=== PATIENT | female | born 1990 | race African-American/Black ===

== ENCOUNTER 2024-05-16 12:20 | Emergency (ER) | payer MEDICAID ==
[~2024-05-16] VITALS: Ht 167.6 cm; Wt 86.0 kg
[~2024-05-16 12:20] MED LIST: AMIT150T PO; ESCI20TA PO; FAMO40TA7 PO; ONDA-241 PO; OXYC1TAB5 PO; POTA-203 PO; PROM25SU57 RC; SUMA50TA16 PO
[2024-05-16 12:21] VITALS: O2SAT 100
[2024-05-16] MEDS ORDERED: MORPHINE SULFATE 4 MG/ML INJ (FOR IV/IM USE) IV STA (12:53)
[2024-05-16] MEDS ORDERED: ONDANSETRON HCL 4MG/2ML INJ IV STA (12:53)
[2024-05-16] MEDS ORDERED: FAMOTIDINE 20MG/2ML VIAL IV ONE (13:00)
[2024-05-16 13:48] LABS: BASOPHILS % 0.2 % (0.0-2.0); HEMATOCRIT. 36.9 % (36.0-48.0); HEMOGLOBIN. 12.1 g/dL (12.0-16.0); LYMPHOCYTES % 7.4 % (20.0-50.0); MEAN CORPUSCULAR HEMOGLOBIN 27.7 pg (28.0-32.0); MEAN CORPUSCULAR HGB CONC 32.9 g/dL (31.0-37.0); MEAN CORPUSCULAR VOLUME 84.1 fL (81.0-99.0); MEAN PLATELET VOLUME 7.6 fl (7.4-10.4); MONOCYTES % 5.4 % (2.0-8.0); PLATELET 386 x1000/uL (130-400); RED BLOOD CELL COUNT 4.39 mill/uL (4.2-5.4); RED CELL DISTRIBUTION WIDTH 15.6 % (11.6-14.6); WHITE BLOOD COUNT 13.5 x1000/uL (4.5-11.0)
[2024-05-16 13:52] LABS: CHLORIDE 98 mEq/L (98-107); POTASSIUM 2.9 mEq/L (3.5-5.1); SODIUM 136 mEq/L (136-145)
[2024-05-16 13:53] LABS: CARBON DIOXIDE 25 mEq/L (21-32)
[2024-05-16 13:58] LABS: CREATININE 0.7 mg/dL (0.6-1.0); GLUCOSE 106 mg/dL (70-105)
[2024-05-16 13:59] LABS: UREA NITROGEN BLOOD 10 mg/dL (9-23)
[2024-05-16 14:00] LABS: ALANINE AMINOTRANSFERASE 17 IU/L (10-49); ALBUMIN 5.1 g/dL (3.2-4.8); ASPARTATE AMINOTRANSFERASE 19 IU/L (<34)
[2024-05-16 14:01] LABS: BILIRUBIN TOTAL 0.4 mg/dL (0.1-1.0); PROTEIN TOTAL 8.3 g/dL (6.0-8.3)
[2024-05-16] MEDS ORDERED: POTASSIUM CHLORIDE 20MEQ/PACKET PO ONE ×2 (14:15→19:45)
[2024-05-16 14:39] LABS: HCG SCREEN NEGATIVE
[2024-05-16] MEDS: SODIUM CHLORIDE 0.9% 1,000 ML IV ONE (19:40)
[2024-05-16] MEDS: FAMOTIDINE 20MG/2ML VIAL IV NR (19:40)
[2024-05-16] MEDS: MORPHINE SULFATE 4 MG/ML INJ (FOR IV/IM USE) IV SCH (19:40)
[2024-05-16] MEDS: POTASSIUM CHLORIDE 20MEQ/PACKET PO NR (19:40)
[2024-05-16] MEDS: ONDANSETRON HCL 4MG/2ML INJ IV NR (19:40)
[2024-05-16 19:41] VITALS: TEMP 36.78072
[2024-05-16 21:10] VITALS: BP 122/86; PULSE 96; RESP 18; O2SAT 100
== END 2024-05-16 21:55 | disposition short-term general hospital (02) ==
LOC: ER 12:27
DX: R53.1 Weakness (principal); R11.2 Nausea with vomiting, unspecified; Z90.49 Acquired absence of other specified parts of digestive tract; Z87.19 Personal history of other diseases of the digestive system
CPT/HCPCS: 80053; 84703; 83690; 85025; 36415; 74176; 96361; 96374; 96375; 99285; J3490; J2405; J2270; J7030; Z7610